=== PATIENT | male | born 1960 | race Caucasian/White ===

== ENCOUNTER 2016-07-02 17:53 | Emergency (ER) | payer OTHER ==
[~2016-07-02] VITALS: Ht 180.3 cm; Wt 95.7 kg
[2016-07-02 21:21] VITALS: BP 125/82
== END 2016-07-02 21:22 | disposition home or self-care (01) ==
LOC: EME 17:53 → EXP 17:53
DX: Z20.3 Contact with and (suspected) exposure to rabies (principal); Z23 Encounter for immunization; Z29.14 Encounter for prophylactic rabies immune globulin
CPT/HCPCS: 99281; 99284

== ENCOUNTER 2016-07-05 10:07 | Emergency (ER) | payer OTHER ==
[~2016-07-05] VITALS: Ht 180.3 cm; Wt 93.4 kg
[2016-07-05 11:56] VITALS: BP 155/83
== END 2016-07-05 11:56 | disposition home or self-care (01) ==
LOC: EME 10:07
PROC: 3E0234Z Introduction of Serum, Toxoid and Vaccine into Muscle, Percutaneous Approach (ICD-10-PCS; principal; 2016-07-05)
DX: Z20.3 Contact with and (suspected) exposure to rabies (principal); Z23 Encounter for immunization
CPT/HCPCS: 99281; 99283